=== PATIENT | female | born 1950 | race Two or more races ===

== ENCOUNTER 2024-04-27 07:55 | Emergency (ER) | payer OTHER ==
[~2024-04-27] VITALS: Ht 165.1 cm; Wt 92.5 kg
[~2024-04-27 07:55] MED LIST: AVAPRO300 MG; COREG CR20 MG; KETO10TA2 PO; MAXIDEX15 ML; MEDROLPACK PO; NABUMETONE500 MG PO; ORPH100T PO; PERCOCET 5/3251 TAB PO
[2024-04-27] MEDS ORDERED: LODOSYN25 MG (08:00)
[2024-04-27] MEDS ORDERED: PRAMIPEXOLE E2.25 MG (08:01)
[2024-04-27] MEDS ORDERED: ANASTROZOLE1 MG (08:01)
[2024-04-27] MEDS ORDERED: 0.9 % SODIUM CHLORIDE 1,000 ML IV ONE (08:45)
[2024-04-27 08:59] LABS: HEMATOCRIT 40.3 % (36.0-45.00); HEMOGLOBIN 13.2 g/dL (12.0-15.00); MEAN CELL VOLUME 92.1 fL (80.00-100.00); MEAN CORPUSCULAR HEMOGLOBIN 30.2 pg (27.00-32.0); MEAN CORPUSCULAR HGB CONC 32.8 g/dl (32.0-36.0); RED BLOOD COUNT 4.38 M/uL (4.00-6.00); RED CELL DISTRIBUTION WIDTH 15.5 % (11.5-14.5)
[2024-04-27 09:03] LABS: PLATELET COUNT 123 K/uL (150-450)
[2024-04-27 10:02] LABS: CALCIUM 9.9 mg/dL (8.5-10.1); CREATININE SERUM 1.25 mg/dL (0.55-1.02); GFR 42.01; POTASSIUM 4.08 mEq/L (3.5-5.1)
[2024-04-27 11:48] LABS: PH,URINE 5.5 (5.0-8.0); URINE APPEARANCE Clear; URINE BILIRRUBIN Negative (NEGATIVE); URINE BLOOD Negative; URINE COLOR Yellow; URINE EPITHELIAL CELLS 14.1 uL (0.0-38.8); URINE GLUCOSE Negative (NEGATIVE); URINE KETONE Negative (NEGATIVE); URINE LEUKOCYTE Negative; URINE NITRATE Negative; URINE PROTEIN Negative (NEGATIVE); URINE UROBILINOGEN 0.2 E.U./dl; URINE WBC 5.3 uL (0.0-23.2)
[2024-04-27 11:53] LABS: URINE CAST 0.61 uL (0.0-1.40); URINE RBC 1.8 uL (0.0-20.8)
== END 2024-04-27 14:12 | disposition home or self-care (01) ==
LOC: ER 07:56
PROVIDERS: Emergency Medicine
DX: R10.9 Unspecified abdominal pain (principal); I10 Essential (primary) hypertension
CPT/HCPCS: 36415; 74177; 96365; 96366; 99284; J7030; Q9965